=== PATIENT | male | born 1960 | race Caucasian/White ===

== ENCOUNTER 2024-07-07 23:05 | Emergency (ER) | payer MEDICAID ==
[~2024-07-07] VITALS: Ht 167.6 cm; Wt 62.9 kg
[2024-07-07] MEDS ORDERED: AMOX1TAB16 MT (23:50)
[2024-07-07] MEDS ORDERED: NAPR-1176 MT (23:51)
[2024-07-08] MEDS ORDERED: KETOROLAC 15MG/ML VIAL IM ONE
[2024-07-08 00:21] VITALS: BP 119/67; PULSE 63; RESP 16; TEMP 37.2; O2SAT 97
== END 2024-07-08 00:22 | disposition home or self-care (01) ==
LOC: ER 23:32
DX: K04.7 Periapical abscess without sinus (principal); Z79.1 Long term (current) use of non-steroidal anti-inflammatories (NSAID)
CPT/HCPCS: 99283